=== PATIENT | male | born 1940 | race Caucasian/White ===

== ENCOUNTER 2018-04-10 05:54 | Observation (INO) | payer MEDICARE ==
[2018-04-07 08:44] VITALS: BP_SYST 152; BP_SYST 168; BP_DIAS 78; BP_DIAS 98
[2018-04-07 08:47] LABS: BASOPHILS % (AUTO) 0.7 % (0.0-5.0); EOSINOPHILS % (AUTO) 1.4 % (0.0-8.0); HEMATOCRIT 45.5 % (42-54); LYMPHOCYTES % (AUTO) 25.9 % (21.0-51.0); MEAN CORPUSCULAR HEMOGLOBIN 31.9 pg (27.0-33.0); MEAN CORPUSCULAR HGB CONC 33.4 g/dL (32.0-36.0); MEAN CORPUSCULAR VOLUME 95.6 fL (79-99); MONOCYTES % (AUTO) 11.2 % (3.0-13.0); NEUTROPHILS % (AUTO) 60.8 % (40.0-77.0); NUCLEATED RED BLOOD CELLS 0.1 % (0.0-0.19); PLATELET COUNT (AUTO) 172 K/uL (130-400); RED BLOOD CELL COUNT(AUTO) 4.75 MIL/uL (4.50-6.20); RED CELL DISTRIBUTION WIDTH 13.3 % (11.0-15.5); WHITE BLOOD COUNT (AUTO) 6.1 K/uL (4.8-10.8)
[2018-04-07 08:55] LABS: CREATININE 1.4 mg/dL (0.5-1.5); POTASSIUM 4.1 mmol/L (3.5-5.1)
[2018-04-07 08:58] LABS: INR 1.15 (0.85-1.15); PARTIAL THROMBOPLASTIN TIME 31.6 SEC (26.3-35.5)
[~2018-04-10] VITALS: Ht 174 cm; Wt 78.5 kg
[2018-04-10] VITALS (10 sets, daily range): BP systolic 130–144; BP diastolic 67–82
[~2018-04-10 05:54] MED LIST: ATOR10TA69 PO; ESOM40CA54 PO; LOSA50TA64 PO; METO50TA18 PO; RIVA20TA PO
[2018-04-10] MEDS ORDERED: SODIUM CHLORIDE 0.9% 1000ML 1,000 ML IV ONE (06:27)
[2018-04-10] MEDS ORDERED: METO50TA18 PO (07:06)
[2018-04-10] MEDS ORDERED: CEFAZOLIN SODIUM 1 GM VIAL ONE (07:11)
[2018-04-10] MEDS ORDERED: BUPIVACAINE/PF 0.25% 50ML VIAL IJ ONE (07:12)
[2018-04-10] MEDS ORDERED: LIDOCAINE HCL 1% MDV 50ML VIAL ONE (07:12)
[2018-04-10] MEDS ORDERED: ACETAMINOPHEN 325 MG TAB PO PRN (08:30)
[2018-04-10] MEDS ORDERED: ONDANSETRON HCL 4 MG/2 ML VIAL IV PRN (08:30)
[2018-04-10] MEDS: LOSARTAN 50 MG TABLET PO SCH (09:54)
[2018-04-10] MEDS: METOPROLOL TARTRATE 50 MG TAB PO SCH ×2 (09:55→20:43)
[2018-04-10] MEDS: PANTOPRAZOLE SODIUM 40 MG TABLET.DR PO SCH (09:55)
--- NOTE | 2018-04-10 12:54 | NUR ---
Patient is resting in bed, at bedside. Patient and able to verbalize understanding of bedrest until 4pm and left arm restriction. Left chest dressing is dry and intact, no bleeding or hematoma noted. Patient refused ice packs stating it makes the pain worse. Call Light and belongings in reach, Bed locked and low. Monitors on and alarms audible.
[2018-04-10] MEDS: CEFAZOLIN SODIUM 1 GM VIAL IVP SCH ×2 (16:03→22:38)
--- NOTE | 2018-04-10 17:12 | NUR ---
Patient ambulated in halls without CP or SOB. Sat in cardiac chair for dinner. Assisted back to bed by staff. Call Light and belongings in reach, Bed locked and low. Monitors on and alarms audible.
[2018-04-10] MEDS: ACETAMINOPHEN 325 MG TAB PO PRN (20:44)
[2018-04-10] MEDS ORDERED: ATORVASTATIN CALCIUM 10 MG TABLET PO SCH (21:00)
--- NOTE | 2018-04-10 21:00 | NUR ---
PT ASSESSMENT-[id number]. PERRLA. PAIN STATED TO CHEST INCISION SITE. REQUESTING TYLENOL. SITE DRY AND INTACT. ACTIVE BOWEL SOUNDS. LAST BM 04/09/18. ABLE TO AMBULATE WITH MINIMAL ASSIST. ROOM AIR. VSWNL. IV PATENT. 20G TO LFA.
--- NOTE | 2018-04-11 | NUR ---
Assumed care of patient after report received from Jannet BURKETT. Initial assessment completed. Patient alert and oriented. Denies pain. Left chest wall dressing clean, dry, and intact. Ambulates to bathroom with minimal assistance. Call light and needed items placed readily at hand. Encouraged to call prn.
[2018-04-11 00:14] VITALS: BP 143/78
[2018-04-11] MEDS: ACETAMINOPHEN 325 MG TAB PO PRN (02:27)
[2018-04-11 03:34] VITALS: BP 147/70
[2018-04-11 07:00] VITALS: BP 155/83
--- NOTE | 2018-04-11 07:51 | NUR ---
DR STEINBERG HERE TO SEE PT UPDATED. HE SPOKE IN DETAIL TO PATIENT AND VISITOR AT BEDSIDE REGARDING STATUS, PENDING DEVICE INTERROGATION, AND PLAN OF CARE. VERBALIZED UNDERSTANDING. ALL QUESTIONS ANSWERED IN DETAIL BY .
[2018-04-11] MEDS: PANTOPRAZOLE SODIUM 40 MG TABLET.DR PO SCH (07:54)
[2018-04-11] MEDS: METOPROLOL TARTRATE 50 MG TAB PO SCH (07:54)
[2018-04-11] MEDS: LOSARTAN 50 MG TABLET PO SCH (07:54)
--- NOTE | 2018-04-11 10:00 | NUR ---
DR SNOW HERE WITH DEVICE REP AT BEDSIDE INTERROGATING DEVICE. MD SPEAKING EXTENSIVELY WITH PATIENT AND SPOUSE REGARDING POSSIBLE NEED FOR NEW LEAD INSERTION.
[2018-04-11 11:00] VITALS: BP 165/84
--- NOTE | 2018-04-11 13:30 | NUR ---
TO [facility] FOR LEAD FLUOROSCOPY ACCOMPANIED BY DIRECTOR OF PROGRAM MANAGEMENT RNS, WANDA & ALBERT. NO DISTRESS UPON TRANSFER. SPOUSE AND SON ACCOMPANIED PT AND WILL WAIT IN LOBBY.
--- NOTE | 2018-04-11 13:50 | NUR ---
DISCHARGED CLEARED FOR DISCHARGE BY DR SNOW AND DR CAMARA. EXIT CARE PT INFORMATION PROVIDED AND REVIEWED IN DETAIL. MEDICATION REGIMEN REVIEWED, INSTRUCTED ON CHANGES TO HOME MED DOSAGES, INSTRUCTED NOT TO START ELIQUIS UNTIL SATURDAY ORDERED BY DR SNOW. VERBALIZED UNDERSTANDING. LEFT UPPER CHEST WITH DRESSING DRY & INTACT. NO BLEEDING NO HEMATOMA. INSTRUCTED TO KEEP AREA CLEAN AND DRY. PROVIDED 4X4 GAUZE AND TAPE. INSTRUCTED TO CHANGE DRESSING IF IT BECOMES WET OR SOILED. ALSO REVIEWED S/S OF INFECTION AND INSTRUCTED TO NOTIFY MD IF ANY OCCUR. VERBALIZED UNDERSTANDING. FOLLOW UP APPTS SCHEDULED. DETAILED INSTRUCTIONS GIVEN TO BOTH PATIENT AND SPOUSE. ANSWERED QUESTIONS IN DETAIL. DISCHARGED VIA WHEELCHAIR WITH ALL BELONGINGS.NO DISTRESS UPON DISCHARGE.
[2018-04-11] MEDS ORDERED: METO25TA6 PO (14:21)
[2018-04-11] MEDS ORDERED: LOSA100T58 PO (14:21)
== END 2018-04-11 15:50 | disposition home or self-care (01) ==
LOC: DAH 05:54 → DAHIP 05:55 → 2CH 08:51 → 2BH 11:15
PROVIDERS: ADMIT Internal Medicine; ATTEND Internal Medicine
DX: T82.119A Breakdown (mechanical) of unspecified cardiac electronic device, initial encounter (principal); Y71.2 Prosthetic and other implants, materials and accessory cardiovascular devices associated with adverse incidents; I10 Essential (primary) hypertension; I44.2 Atrioventricular block, complete; I48.0 Paroxysmal atrial fibrillation; I48.2 Chronic atrial fibrillation; Z79.01 Long term (current) use of anticoagulants; Z95.0 Presence of cardiac pacemaker
CPT/HCPCS: 33228; 36415; 71045; 76000; 80048; 85025; 85610; 85730; 93005; 96374; 96376; A4218; A4606; C1785; G0378 ×34; J0690 ×3; J3490 ×2; J7030